=== PATIENT | male | born 1980 | race Caucasian/White ===

== ENCOUNTER 2022-01-07 16:19 | Inpatient (IN) | payer OTHER, SELFPAY ==
--- NOTE | ~2022-01-07 | XR_ITS ---
EXAMINATION: XR abdomen/kub 1V DATE: 01/08/2022 09:21 INDICATION: Small bowel obstruction TECHNIQUE: A supine view of the abdomen on 2 radiographs was obtained. COMPARISON: 01/07/2022 FINDINGS: Nasogastric tube tip in proximal side port in the body of the stomach. Moderate amount of stool scatt ered throughout the colon. Significant decrease in now small amount of gas within a few loops of nond ilated bowel in the right abdomen. The previous a dilated gas-filled loops of bowel in the central an d left abdomen are normal. Present study consistent with improving small bowel obstruction. Excreted contrast in the bladder from prior CT. Persistent opacities at the left lung base with appearance on prior CT favoring atelectasis over pneumonia. IMPRESSION: 1. Improving small bowel obstruction versus ileus. Reviewed, dictated and finalized at location A.
--- NOTE | ~2022-01-07 | CT_ITS ---
EXAMINATION: CT abdomen pelvis w con DATE: 01/07/2022 20:12 INDICATION: epigastric pain X 4 days, bloating, ETOH abuse TECHNIQUE: Computed tomography (CT) of the abdomen and pelvis was performed with 100 mL Omnipaque-350 intravenous contrast. Automated exposure control and iterative reconstruction technique were employe d. The dose-length product was 779.69 mGy-cm. COMPARISON: None. FINDINGS: Lower thorax: Coronary calcification. Subsegmental medial right middle lobe and lingular atelectasis. Bibasilar linear scar. Liver: Innumerable subcentimeter hypodensities, too small to characterize but likely represent cysts. Biliary/Gallbladder: Gallbladder is normal. No bile duct dilation. Pancreas: No mass or duct dilation. Spleen: Normal. Adrenals:No mass. Kidneys: Subcentimeter right lower pole hypodensity, too small to characterize but likely represents a cyst or AML. No suspicious mass, stone, or hydronephrosis. GI tract: Multiple loops of dilated small bowel mid abdomen. Portions of the proximal jejunum and dis julito ileum are normal in caliber. No discrete transition point. Minimal interloop fluid. No large parker l dilation. Normal appendix. Mesentery/Peritoneum: No ascites, mass, or free air. Retroperitoneum: No mass. Pelvis: Distended urinary bladder, prosthetic calcification, pelvic organs are otherwise within leatha l limits. Soft Tissues: Uncomplicated small fat-containing umbilical and right inguinal hernias. Bones: No acute osseous finding. IMPRESSION: Long segment small bowel obstruction, involving portions of the distal jejunum and proximal ileum, wi thout identification of focal transition point. Reviewed, dictated and finalized at location K. IMPRESSION: Long segment small bowel obstruction, involving portions of the distal jejunum and proximal ileum, without identification of focal transition point.
--- NOTE | ~2022-01-07 | XR_ITS ---
EXAM: XR abdomen NG/feed tube insert DATE: 01/07/2022 21:52 HISTORY: ng tube placement . COMPARISON: CT abdomen and pelvis, same date. FINDINGS: NG tube, tip over the stomach, side port at the GE junction. Bibasilar scar and atelectasi s. Multiple loops of dilated small bowel. No organomegaly. No abnormal abdominal calcification. Regio nal bones and soft tissues normal for age. IMPRESSION: Shallow positioned NG tube, consider 4 cm advancement. Reviewed, dictated and finalized at location K.
--- NOTE | ~2022-01-07 | XR_ITS ---
EXAMINATION: XR sm bowel follow through DATE: 01/08/2022 13:30 INDICATION: Small bowel obstruction. TECHNIQUE: Oral contrast was administered, and a time course of radiographs of the abdomen was obtain ed. Fluoroscopy of the small bowel was not performed. Fluoroscopy exposure time was 0 minutes. The to julito number of images was 6. COMPARISON: CT abdomen and pelvis 01/07/2022 FINDINGS: There are multiple dilated loops of jejunum. The ileum is normal in caliber. Transit time from the st omach to proximal colon was approximately 1.5 hours. IMPRESSION: 1. Dilated jejunum without focal transition point, consistent with adynamic ileus. Reviewed, dictated and finalized at location A. IMPRESSION: 1. Dilated jejunum without focal transition point, consistent with adynamic ile us.
[2022-01-07 16:43] VITALS: BP 121/87; PULSE 84; RESP 18; TEMP 36.4; O2SAT 100
[2022-01-07 17:11] LABS: Basophils Percent Auto 0.6 % (0.2-1.2); Eosinophils Absolute Auto 0.1 K/mm3 (0-0.3); Eosinophils Percent Auto 1.8 % (0-4.4); Hematocrit 47.1 % (42.0-52.0); Hemoglobin 15.7 g/dL (14.0-18.0); Immature Granulocyte Absolute 0.03 K/mm3 (0.00-0.031); Immature Granulocyte Percent A 0.5 % (0-0.5); Lymphocytes Absolute Auto 1.55 K/mm3 (0.9-3.2); Lymphocytes Percent Auto 24.8 % (18.3-44.2); Mean Corpuscular HGB Conc 33.3 g/dl (32-36); Mean Corpuscular Hemoglobin 31.7 pg (26-34); Mean Corpuscular Volume 95.2 fl (80-100); Monocytes Absolute Auto 0.4 K/mm3 (0.1-0.6); Monocytes Percent Auto 6.9 % (2.6-8.5); Neutrophils Absolute Auto 4.1 K/mm3 (1.3-6.7); Neutrophils Percent Auto 65.4 % (45.5-73.1); Platelet Count Result 246 k/mm3 (150-375); Red Blood Count 4.95 M/mm3 (4.6-6.20); Red Cell Distribution Width 13.5 % (11.5-14.5); White Blood Count 6.3 K/mm3 (4.5-10.0)
[2022-01-07 17:15] LABS: Appearance Urine Clear (Clear); Bilirubin Urine Negative (Negative); Blood Urine Negative (Negative); Color Urine Yellow (Yellow); Glucose Urine UA Negative (Negative); Ketones Urine Negative (Negative); Leukocyte Esterase Ur Negative LEU/UL (Negative); Nitrate Urine Negative (Negative); Protein Urine Negative (Negative); Urobilinogen Urine 0.2 mg/dL (<2.0)
[2022-01-07 17:16] LABS: Alanine Aminotransferase 17 U/L (6-50); Albumin Level 4.6 g/dL (3.5-5.1); Alkaline Phosphatase 37 U/L (38-126); Anion Gap 11 mmol/L (8-16); Aspartate Amino Transferase 22 U/L (17-59); Bilirubin,Total 0.4 mg/dL (0.2-1.3); Blood Urea Nitrogen 9 mg/dL (9-20); Calcium 9.5 mg/dL (8.4-10.2); Carbon Dioxide 27 mmol/L (22-30); Chloride 100 mmol/L (98-107); Estimated CRCL calculation 102 ml/min; Estimated Glomerular Filt Rate > 60; Glucose 98 mg/dL (65-110); Lipase 37 U/L (23-300); Potassium 4.3 mmol/L (3.4-5.0); Sodium 138 mmol/L (137-145)
[2022-01-07 17:27] LABS: RBC Urine 0-2 /hpf (0-2); WBC Urine 0-3 /hpf
[2022-01-07 17:44] LABS: Add Urine Microscopic? YES
--- NOTE | 2022-01-07 19:21 | ED.ABDPAIN ---
HPI - Abdominal Pain General Chief Complaint: Abdominal Pain Stated Complaint: i think my appendix is going to burst Time Seen by Provider: 01/07/22 18:46 Source: patient Mode of arrival: ambulatory Limitations: no limitations History of Present Illness HPI narrative: Patient is a 41-year-old male, with history of ETOH abuse, who presents to the ED with report of upper abdominal pain. Patient reports having persistent pain for the last 4 days. Intermittent sharp and stabbing pains. Pain worse when he is laying flat patient or on his side. He also reports having bloating and distention of his abdomen over the last 4 days. Denies any nausea, vomiting, diarrhea, constipation, rectal bleeding, fevers. Last BM yesterday and small. Denies history of known liver disease. Patient reports a history of ETOH abuse. He was previously sober for 19 months, but over the last 4 months he has been drinking daily again, up to 12 shots of whiskey a day. He has not drank anything in the last 4 days. He denies having significant withdrawal symptoms when he does stop drinking. Denies history of withdrawal seizures. Related Data Allergies Allergy/AdvReac Type Severity Reaction Status Date / Time Penicillins Allergy Unknown Unknown Verified 01/07/22 18:51 Review of Systems Review of Systems: CONSTITUTIONAL: Denies fever, chills, or sweats. CARDIOVASCULAR: Denies chest pain. RESPIRATORY: Denies dyspnea. GASTROINTESTINAL: Reports upper abdominal pain. Denies constipation, rectal bleeding, nausea, vomiting, or diarrhea. GENITOURINARY: Denies dysuria or hematuria. MUSCULOSKELETAL: Denies back pain. All systems reviewed & are unremarkable except as noted in HPI and below PMFSH Past Medical History Medical History Generalized anxiety disorder with panic attacks Surgical History Surgical History (Updated 01/07/22 @ 19:34 by Amanda Cuba PA-C) History of tonsillectomy and adenoidectomy Social History Social History (Updated 01/07/22 @ 19:35 by Amanda Cuba PA-C) Smoking status: Current every day smoker Tobacco type: cigarettes Alcohol intake: current Exam Narrative: GENERAL: Well appearing, well-nourished, non-toxic, in no acute distress. HEAD: Normocephalic, atraumatic. NECK: Supple. No adenopathy, no masses. RESPIRATORY: Airway patent, respirations nonlabored. Clear to auscultation bilaterally, no rales, rhonchi, wheezing. CARDIOVASCULAR: Regular rate and rhythm without murmurs, rubs, or gallops. Peripheral pulses 2+ and equal bilaterally. ABDOMINAL: Soft, but appears bloated and mildly distended. Tenderness to palpation in the epigastric and supraumbilical region. Nondistended, no hepatosplenomegaly. Normoactive BS in lower quadrants. MUSCULOSKELETAL: Moves all extremities. Strength/ROM intact without gross deformities or TTP. No edema. SKIN: Warm, dry, normal color. No rashes. Yellow discoloration of L 1st and 2nd nails, likely due to smoking. NEURO: A&O X3. Speech clear. Cranial nerves II-XII grossly intact. Steady gait. No ataxic movements. PSYCHIATRIC: Appropriate mood and affect. Normal interaction. Course Consultations Consultation #1: Discussed case with Dr. Ryan, accepted patient for admission. Date: 01/07/22 Consultation #2: Discussed case with Dr. Cooper, general surgery, will see patient in the morning. NG tube. Date: 01/07/22 Vital Signs Vital signs: Vital Signs Temperature 97.6 F 01/07/22 16:43 Pulse Rate 84 01/07/22 16:43 Respiratory Rate 18 01/07/22 16:43 Blood Pressure 121/87 01/07/22 16:43 Pulse Oximetry 100 01/07/22 16:43 Oxygen Delivery Room Air 01/07/22 16:43 Temperature 97.6 F 01/07/22 16:43 Pulse Rate 84 01/07/22 16:43 Respiratory Rate 18 01/07/22 16:43 Blood Pressure 121/87 01/07/22 16:43 Pulse Oximetry 100 01/07/22 16:43 Oxygen Delivery Room Air 01/07/22 16:43 MDM
[2022-01-07] MEDS: MORPHINE SULFATE (*CRX) 2 MG/ML INJ IV PUSH (19:41)
[2022-01-07] MEDS: ONDANSETRON INJ 4 MG/2 ML VIAL IV PUSH (19:41)
[2022-01-07] MEDS: SODIUM CHLORIDE 0.9% IV 1,000 ML 999 ML IV CONT (19:41)
[2022-01-07] MEDS: MORPHINE SULFATE (*CRX) 4 MG/ML INJ IV PUSH (21:27)
--- NOTE | 2022-01-07 21:33 | PM.IMHP ---
H&P: HPI History of Present Illness Date/Time: 01/07/22 21:33 Chief Complaint: abdominal pain Narrative: This is a 41-year-old male with past medical history significant for alcohol abuse, generalized anxiety disorder, tobacco dependence patient smokes 2 packs of cigarettes daily. patient presents to the emergency room due to sudden onset abdominal pain S states that he has been in his usual state of health up until 2 days ago he did various things at home to try to get it to go away initially thought that he was constipated and he has been eating in a high-fiber diet however pain continued to worsen has not been able to pass gas and had change in his bowel movements had 1 small bowel movement, patient denies any blood in the stools, no vomiting, no nausea, no fevers, no rigors, no chills, no cough, no sputum production. Preliminary workup was significant for CT of abdomen and pelvis was reported as; IMPRESSION: Long segment small bowel obstruction, involving portions of the distal jejunum and proximal ileum, without identification of focal transition point. Review of Systems Review of Systems: abdominal pain for 4 days, constipation Constitutional: Constitutional: Denies chills, Denies fever(s), Denies malaise, Denies night sweats and Denies weakness Eyes: Eyes: Denies change in vision ENT: Denies dysphagia, Denies vertigo, Denies dizziness and Denies odynophagia Cardiovascular: Cardiovascular: Denies chest pain, Denies syncope, Denies irregular heart rhythm, Denies lightheadedness and Denies palpitations Respiratory: Respiratory: Denies chest congestion, Denies cough, Denies excessive phlegm production, Denies pain on inspiration, Denies dyspnea and Denies dyspnea on exertion Gastrointestinal: Gastrointestinal: Reports abdominal pain, Denies melena, Reports bloating, Denies hematochezia, Denies coffee ground emesis, Denies dyspepsia, Denies heartburn, Denies nausea, Denies vomiting and Denies hematemesis Genitourinary: Genitourinary: Denies dysuria Musculoskeletal: Musculoskeletal: Denies back pain, Denies arthralgias, Denies joint swelling and Denies muscle weakness Integumentary/Breasts: Skin/Breast: Denies rash Neurologic: Denies vertigo, Denies dizziness, Denies focal weakness and Denies Sensory deficit (Neuro) Psychiatric: Psychiatric: Reports no additional psychiatric complaints and Reports as per HPI Endocrine: Endocrine: Denies cold intolerance, Denies flushing, Denies heat intolerance, Denies polyphagia, Denies polydipsia and Denies palpitations Hematologic/Lymphatic: Hematologic/Lymphatic: Reports no additional hematologic/lymphatic complaints and Reports as per HPI Allergic/Immunologic: Allergic/Immunologic: Reports no additional allergic/immunologic complaints and Reports as per HPI PMFSH Past Medical History Medical History Generalized anxiety disorder with panic attacks Surgical History Surgical History (Updated 01/07/22 @ 19:34 by Amanda Cuba PA-C) History of tonsillectomy and adenoidectomy Family History Family History (Updated 01/07/22 @ 23:40 by Reynold Jean RN) Sibling Anxiety Depression Father Anxiety Depression Mother Anxiety Depression Diverticulitis Social History Social History (Updated 01/07/22 @ 19:35 by Amanda Cuba PA-C) Smoking status: Current every day smoker Tobacco type: cigarettes Alcohol intake: former Drinks per week: 50 Substance use: current Substance use type: marijuana Last use: 01/02/2022 Spiritual care concerns: No Meds Home Medications and Allergies Home Medications Medication Instructions Recorded Confirmed Type albuterol sulfate 90 mcg/actuation 90 mcg inhalation QID PRN 01/07/22 01/07/22 History aerosol inhaler Shortness Of Breath clonazepam 1 mg tablet 1 mg PO TID 01/07/22 01/07/22 History nicotine 21 mg/24 hr daily 21 mg de leon
[2022-01-07] MEDS: NICOTINE (*PBKC) 21 MG PATCH 1 PATCH TRANSDERM (21:49)
[2022-01-07] MEDS: LORazepam INJ (*CRX) 2 MG/ML VIAL 0.5 MG IV PUSH (22:43)
[2022-01-07 23:01] VITALS: BP 140/68; PULSE 84; RESP 16; O2SAT 98
[2022-01-07 23:50] VITALS: BMI 26.2
[2022-01-07 23:51] VITALS: BP 130/78; PULSE 62; RESP 20; TEMP 36.2; O2SAT 99
[2022-01-08] MEDS: HYDROmorphone HCL INJ (*CRX) 1 MG/ML SYR 0.5 MG IV PUSH ×5 (00:04→08:21)
--- NOTE | 2022-01-08 00:20 | ADMGEN ---
This patient, Tung Gilbert, was admitted to Medical Room 242-. Patient/family oriented to hospital policies and general routines including ID bracelet, bed and alarms, visiting hours, pain management, procedures, bathroom and other care routines, personal items, smoking policy, room service/diet, and visiting hours. Information on how to activate the Rapid Response Team has been discussed. Patient/Family are encouraged to report perceived risks to care and to ask questions if they do not understand what they are told or what they should do.
[2022-01-08 04:56] VITALS: BP 107/65; PULSE 72; RESP 18; TEMP 36; O2SAT 98
[2022-01-08] MEDS: NICOTINE (*PBKC) 21 MG PATCH 1 PATCH TRANSDERM (08:19)
[2022-01-08] MEDS: THIAMINE HCL 200 MG/2 ML VIAL 100 MG IV PUSH (08:20)
[2022-01-08 08:29] VITALS: RESP 18; O2SAT 98
[2022-01-08] MEDS: SODIUM CHLORIDE 0.9% IV 1,000 ML 100 ML IV CONT ×2 (08:53→20:22)
--- NOTE | 2022-01-08 10:52 | PM.CNGS ---
Assessment and Plan Assessment and plan (1) Small bowel obstruction: Code(s): K56.609 - Unspecified intestinal obstruction, unspecified as to partial versus complete obstruction Status: Acute Assessment and Plan: CT scan reviewed and discussed with the patient in detail. This suggests long segment small bowel obstruction with no transition point. He has no previous abdominal surgeries and etiology is unclear at this time. NG tube was placed and he was made NPO. Seems to be clinically improving and his KUB this morning showed improvement. KUB also shows a fair amount of stool in his colon. Still not having any bowel function but his abdominal exam is benign with good bowel sounds. The patient is very agitated about the discomfort of the NG tube and is wanting it to be removed. Will get a Gastrografin small bowel follow through now to further evaluate the obstruction. This will be both diagnostic and therapeutic. If there is no obstruction, then we can remove the NG tube and start clear liquids. (2) Alcohol dependence: Code(s): F10.20 - Alcohol dependence, uncomplicated Status: Acute (3) Tobacco dependence: Code(s): F17.200 - Nicotine dependence, unspecified, uncomplicated Status: Acute Plan I have discussed the patient's case and plan of care with Dr. Cooper. Thank you for allowing us to see the patient in consultation and we will continue to follow along with you. History of Present Illness Consult details Consult date: 01/08/22 Reason for consult: other (Small bowel obstruction) Requesting physician: Amanda Cuba PA-C Narrative: This is a 41-year-old man with a history of ETOH abuse, who presented to the ER last night with complaints of abdominal pain. He states that 5 days ago, he had 5 shots of whiskey and ate a bratwurst. Shortly after eating, he had an onset of diffuse abdominal pain. His pain improved over the next four hours, and he decided to eat another bratwurst. His abdominal pain returned. His pain would come and go in waves. It was cramping in nature but severe. He denies nausea, vomiting, or diarrhea. He had associated bloating. He felt constipated and thought his symptoms would improve with BM. Therefore, he continued to eat over the next few days to try and help facility his bowel moving. He ate cashews, beef jerky, large amount of beef stew, and multiple other meals. He had one small bowel movement 3 days ago, but his pain continued. He has not been passing gas the last few days. He did not take any laxatives or over the counter medication. Due to his persistent abdominal pain, he presented to the ER for evaluation. CT scan of the abdomen and pelvis showed a long segment small bowel obstruction involving portions of the distal jejunum and proximal ileum without focal transition point. Labs were unremarkable. He was admitted to the Hospitalist. Our service was consulted for small bowel obstruction. He is now seen on the medical floor. No history of any abdominal surgeries and no history of a bowel obstruction in the past. No personal or family history of IBD. The patient is frustrated on my exam due to his NG tube. His only complaint is the pain in his head from the NG tube. He reports his abdominal pain has improved and he states he is still sore to palpation but no pain. He is requesting pain medication for his head and ear pain. He denies nausea. His bloating has improved. He is not passing gas and still no BM. There has been 250 cc out from the NG since it was placed last night. Review of Systems Review of Systems: All systems reviewed & are unremarkable except as noted in HPI and below Constitutional: Constitutional: Reports as per HPI, Reports no additional constitutional complaints, Denies chills, Denies fatigue, Denies fever(s) and Reports headache(s) Eyes: Eyes: Reports no additional eye complaints ENT: Reports system reviewed and no additional complaints, except
[2022-01-08] MEDS: MORPHINE SULFATE (*CRX) 2 MG/ML INJ IV PUSH (10:56)
--- NOTE | 2022-01-08 11:15 | PM.IMPN ---
Progress Note: A&P Assessment and Plan (1) Small bowel obstruction: Code(s): K56.609 - Unspecified intestinal obstruction, unspecified as to partial versus complete obstruction Status: Acute Assessment and Plan: CT of the abd/pel SBO involving portions of the distal jejunem and proximal ileum without focal transition point Repeat TORITO shows improved small bowel follow through NG tube placed to LIMS IV fluids for hydration Trend output General surgery consult thank you Dilaudid and Tylenol for pain control Added Morphine 2mg IV one time to see if this helps with the pain Serial abd xrays Small bowel follow through NPO for now (2) Generalized anxiety disorder with panic attacks: Code(s): F41.1 - Generalized anxiety disorder; F41.0 - Panic disorder [episodic paroxysmal anxiety] Status: Acute Assessment and Plan: Hold home PO medications Valium IV PRN Trend mood Adjust as indicated (3) Alcohol dependence: Code(s): F10.20 - Alcohol dependence, uncomplicated Status: Acute Assessment and Plan: CIWA as needed Neuro checks Folic acid and thiamine Trend CIWA score Librium on board Valium on board (4) Tobacco dependence: Code(s): F17.200 - Nicotine dependence, unspecified, uncomplicated Status: Acute Assessment and Plan: nicotine patch and gum as needed Cessation education given for 8 minutes Time Spent With Patient Time with patient: Greater than 35 minutes Subjective Date/time seen: 01/08/22 06:30 Interval history: 01/08/22 Patient is plenty of pain. Patient stated that his pain from his abdomen has subsided however he is having some major ear, throat, nasal pain from the tube. Did explain to the patient that we will try 2 mg of morphine x1 it is. He also thinks that if he had some laxatives it would really help. However he denies any gas. NG tube is hooked up to suction did looks to be light brown. KUB was performed and showed a mild improvement. Surgeries ordered a small-bowel follow-through. Patient is a marijuana user which could be the reason why he is having hard time getting his pain controlled. Will continue to adjust pain medicines until he is comfortable. 01/07/22? 21:33 ?This is a 41-year-old male with past medical history significant for alcohol abuse, generalized anxiety disorder, tobacco dependence patient smokes 2 packs of cigarettes daily. patient presents to the emergency room due to sudden onset abdominal pain S states that he has been in his usual state of health up until 2 days ago he did various things at home to try to get it to go away initially thought that he was constipated and he has been eating in a high-fiber diet however pain continued to worsen has not been able to pass gas and had change in his bowel movements had 1 small bowel movement,? patient denies any blood in the stools,? no vomiting, no nausea, no fevers, no rigors, no chills, no cough, no sputum production.? Preliminary workup was significant for CT of abdomen and pelvis? was reported as; IMPRESSION: Long segment small bowel obstruction, involving portions of the distal jejunum and proximal ileum, without identification of focal transition point. Review of Systems Review of Systems: All systems reviewed & are unremarkable except as noted in HPI and below Exam Const: General: cooperative, no acute distress, well developed, alert, awake, acute distress, tired appearing and uncomfortable Nutritional Appearance: well nourished Orientation/consciousness: patient oriented x3 Limitations: no limitations HENMT: Head: normal to inspection Ears: hearing grossly normal bilaterally General nose exam: Normal external nose present Mouth: Yes Normal oral and palatal mucosa present, Yes lip normal and Yes tongue normal Teeth and gingiva: abnormal tooth and associated gingiva and poor dentiti
--- NOTE | 2022-01-08 11:45 | PC.NURSE ---
To radiology via wheelchair.
[2022-01-08] MEDS: diazePAM INJ (*CRX) 10 MG/2 ML SYRINGE 5 MG IV PUSH ×2 (12:22→20:21)
[2022-01-08] MEDS: HYDROmorphone HCL INJ (*CRX) 1 MG/ML SYR IV PUSH ×2 (13:34→19:32)
[2022-01-08 14:00] VITALS: BP 123/65; PULSE 91; RESP 18; TEMP 36.7; O2SAT 97
[2022-01-08 19:34] VITALS: BP 142/90; PULSE 92; RESP 17; TEMP 36.6; O2SAT 100
[2022-01-08] MEDS: NICOTINE (*PBKC) 4 MG GUM PO (20:32)
[2022-01-09 04:57] VITALS: BP 131/79; PULSE 75; RESP 16; TEMP 36.4; O2SAT 97
[2022-01-09] MEDS: HYDROmorphone HCL INJ (*CRX) 1 MG/ML SYR IV PUSH (05:06)
[2022-01-09] MEDS: diazePAM INJ (*CRX) 10 MG/2 ML SYRINGE 5 MG IV PUSH (05:07)
[2022-01-09] MEDS: SODIUM CHLORIDE 0.9% IV 1,000 ML 100 ML IV CONT (05:13)
[2022-01-09 05:43] LABS: Basophils Percent Auto 0.6 % (0.2-1.2); Eosinophils Absolute Auto 0.1 K/mm3 (0-0.3); Eosinophils Percent Auto 2.6 % (0-4.4); Hematocrit 40.6 % (42.0-52.0); Hemoglobin 13.8 g/dL (14.0-18.0); Immature Granulocyte Absolute 0.02 K/mm3 (0.00-0.031); Immature Granulocyte Percent A 0.4 % (0-0.5); Lymphocytes Absolute Auto 1.33 K/mm3 (0.9-3.2); Lymphocytes Percent Auto 28.3 % (18.3-44.2); Mean Corpuscular Hemoglobin 32.3 pg (26-34); Mean Corpuscular Volume 95.1 fl (80-100); Mean Platelet Volume 8.9 fl (7.4-10.4); Monocytes Absolute Auto 0.6 K/mm3 (0.1-0.6); Monocytes Percent Auto 11.9 % (2.6-8.5); Neutrophils Absolute Auto 2.6 K/mm3 (1.3-6.7); Neutrophils Percent Auto 56.2 % (45.5-73.1); Platelet Count Result 202 k/mm3 (150-375); Red Blood Count 4.27 M/mm3 (4.6-6.20); Red Cell Distribution Width 13.2 % (11.5-14.5); White Blood Count 4.7 K/mm3 (4.5-10.0)
[2022-01-09 06:05] LABS: Alanine Aminotransferase 17 U/L (6-50); Albumin Level 3.5 g/dL (3.5-5.1); Alkaline Phosphatase 28 U/L (38-126); Anion Gap 6 mmol/L (8-16); Aspartate Amino Transferase 25 U/L (17-59); Bilirubin,Total 0.4 mg/dL (0.2-1.3); Blood Urea Nitrogen 7 mg/dL (9-20); Calcium 8.5 mg/dL (8.4-10.2); Carbon Dioxide 26 mmol/L (22-30); Chloride 105 mmol/L (98-107); Estimated CRCL calculation 114 ml/min; Estimated Glomerular Filt Rate > 60; Glucose 92 mg/dL (65-110); Potassium 3.8 mmol/L (3.4-5.0); Sodium 137 mmol/L (137-145)
[2022-01-09 07:50] VITALS: RESP 18; O2SAT 98
[2022-01-09] MEDS: THIAMINE HCL 200 MG/2 ML VIAL 100 MG IV PUSH (08:46)
[2022-01-09] MEDS: clonazePAM (*CRX) 0.5 MG TABLET 1 MG PO (08:46)
[2022-01-09] MEDS: FOLIC ACID 1 MG TABLET PO (08:46)
[2022-01-09] MEDS: NICOTINE (*PBKC) 4 MG GUM PO (08:47)
[2022-01-09] MEDS: NICOTINE (*PBKC) 21 MG PATCH 1 PATCH TRANSDERM (08:47)
--- NOTE | 2022-01-09 08:54 | PM.PNGS ---
Progress Note: A&P Assessment and Plan (1) Small bowel obstruction: Code(s): K56.609 - Unspecified intestinal obstruction, unspecified as to partial versus complete obstruction Status: Acute Assessment and Plan: Small-bowel follow-through showed some dilated jejunum with transit time to the colon in 1.5 hours. His diet has been advanced and he is tolerating a regular diet. Bowels are moving. Okay to discharge from our standpoint. No follow-up needed. Plan I have discussed the patient's case and plan of care with Dr. Cooper. Subjective Subjective Date/Time Seen: 01/09/22 08:54 Patient reports: feels better, tolerating a regular diet, flatus and bowel movement Interval history: Patient seen and examined. He reports feeling much better today. Denies any abdominal pain, nausea, or vomiting. Bloating continues to improve. He has had at least 6 bowel movements overnight. No other complaints at this time. Exam Const: General: no acute distress Orientation/consciousness: patient oriented x3 GI: Inspection: non-distended GI Palp: Yes Soft to palpation, No Tenderness to palpation present (GI), No Guarding due to palpation present (GI) and No Rebound tenderness present Auscultation: normal bowel sounds Psych: Mental Status: mental status grossly normal Insight: Good insight present (Psych) Objective Data Vital Signs Vital Signs: Vital Signs - 24 hr 01/08/22 14:00 01/08/22 19:34 01/08/22 20:00 Temperature 98.0 F 97.8 F Pulse Rate 91 92 Respiratory Rate 18 17 Blood Pressure 123/65 142/90 H Pulse Oximetry 97 100 Oxygen Delivery Room Air 01/09/22 04:57 01/09/22 07:50 Temperature 97.6 F Pulse Rate 75 Respiratory Rate 16 18 Blood Pressure 131/79 Pulse Oximetry 97 98 Oxygen Delivery Room Air Intake/Output Intake/Output: Intake & Output 01/06/22 01/07/22 01/08/22 01/09/22 23:59 23:59 23:59 23:59 Intake Total 1100 1780 1597 Output Total 2550 500 Balance 1100 -770 1097 Meds/Results Medications: Active Medications Generic Name Dose Route Start Last Admin Trade Name Freq PRN Reason Stop Dose Admin Acetaminophen 650 mg 01/09/22 07:56 Acetaminophen 325 Mg Tablet PO Q4H PRN Mild Pain Albuterol 2 puff 01/08/22 06:27 Albuterol Sulfate (*Sp) Aerosol 1 Puff INHALATION QID PRN Shortness Of Breath Chlordiazepoxide HCl 25 mg 01/08/22 06:31 Chlordiazepoxide (*Crx) 25 Mg Capsule PO Q6H PRN Withdrawal Clonazepam 1 mg 01/09/22 07:55 01/09/22 08:46 Clonazepam (*Crx) 0.5 Mg Tablet PO 1 mg TID PRN Administration Anxiety Folic Acid 1 mg 01/08/22 09:00 01/09/22 08:46 Folic Acid 1 Mg Tablet PO 1 mg DAILY DYLLAN Administration Hydromorphone HCl 1 mg 01/08/22 11:46 01/09/22 05:06 Hydromorphone Hcl Inj (*Crx) 1 Mg/Ml Syr IV PUSH 1 mg Q3H PRN Administration Pain Rated 7-10 Sodium Chloride 1,000 mls @ 100 mls/hr 01/08/22 08:35 01/09/22 05:13 Normal Saline Iv IV CONT 100 mls/hr .Q10H DYLLAN Administration Nicotine 1 patch 01/08/22 06:28 01/09/22 08:47 Nicotine (*Pbkc) 21 Mg Patch TRANSDERM 1 patch QAM PRN Administration tobacco cravings Nicotine Polacrilex 4 mg 01/08/22 06:28 01/09/22 08:47 Nicotine (*Pbkc) 4 Mg Gum PO 4 mg PRN PRN Administration Nicotine Cravings Thiamine HCl 100 mg 01/08/22 09:00 01/09/22 08:46 Thiamine Hcl 200 Mg/2 Ml Vial IV PUSH 100 mg DAILY DYLLAN Administration Radiology Results: ITS Impressions Abdomen/Pelvis CT 01/07/22 20:52 IMPRESSION: Long segment small bowel obstruction, involving portions of the distal jejunum and proximal ileum, without identification of focal transition point. Abdomen X-Ray 01/08/22 09:25 IMPRESSION: 1. Improving small bowel obstruction versus ileus. Small Bowel X-Ray 01/08/22 13:36 IMPRESSION: 1. Dilated jejunum without focal transition point, consistent with ad
--- NOTE | 2022-01-09 09:50 | PM.DS ---
DS: Admitting Diagnosis Discharge Date 01/09/2022 Admitting Diagnosis Ileus DS: Discharge Diagnosis Discharge Diagnosis (1) Small bowel obstruction: Code(s): K56.609 - Unspecified intestinal obstruction, unspecified as to partial versus complete obstruction Status: Acute Assessment and Plan: patient presented with [address] days of abdominal pain CT of the abdomen/ pelvis on presentation showed long segment small bowel obstruction involving portions of distal jejunum and proximal ileum without identification of focal transition point patient was seen in consultation by General surgery NG tube placed on admission with overall improvement small-bowel follow-through completed on 01/08 showed findings consistent with adynamic ileus with contrast transit from stomach to proximal colon and 1.5 hours diet was able to be advanced and patient eventually able to tolerate a regular diet. pain resolved. (2) Generalized anxiety disorder with panic attacks: Code(s): F41.1 - Generalized anxiety disorder; F41.0 - Panic disorder [episodic paroxysmal anxiety] Status: Acute Assessment and Plan: Patient maintained on clonazepam 1 mg t.i.d. states he is running out of this medication and cannot get it refilled due to cost to see his provider. he has been referred to the on-call PCP whom he can follow up with and may consider referral to Psychiatry as an outpatient patient open to alternative therapies (3) Alcohol dependence: Code(s): F10.20 - Alcohol dependence, uncomplicated Status: Acute Assessment and Plan: patient with history of alcohol abuse. Reports being sober for 9 months, recently drank again after from his but reports that he has not had any alcohol in several weeks. CIWA protocol initiated during admission with scores ranging from 0-4 no evidence of alcohol withdrawal continue thiamine and folic acid educated patient for 5 minutes regarding importance of continued abstinence from alcohol use. (4) Tobacco dependence: Code(s): F17.200 - Nicotine dependence, unspecified, uncomplicated Status: Acute Assessment and Plan: patient smokes 1 pack per day had previously been using nicotine patches but admitted to smoking while using nicotine patches patient informed he should under no circumstances smoke while wearing nicotine patch discussed smoking cessation with the patient for 5 minutes. Patient states he is not prepared to embark on smoking cessation endeavor until he gets his anxiety medications sorted out. DS: Summary Hospital Course Hospital Course: date of admission: 01/07/2022 date of discharge: 01/09/2022 Tung Gilbert is a 41-year-old male with a history of anxiety disorder with panic attacks, tobacco abuse, alcohol abuse who presented to the emergency department on 01/07/2022 with complaints of abdominal pain ongoing for 4 days. On presentation to the ED, his vital signs were stable, he was afebrile, CBC and BMP unremarkable, CT of the abdomen/pelvis showed long segment small bowel obstruction. NG tube placed in the ED and patient was admitted to the hospitalist service for further evaluation and management. Please see above for further details. Patient had symptomatic improvement following NG decompression. NG tube was removed and bowel function return. Patient able to tolerate his diet. Patient was feeling back to his usual state of health and was eager for discharge home. Given overall improvement, he was determined to no longer require inpatient care was discharged in hemodynamically stable condition 01/09/2022. Patient educated regarding continued alcohol cessation as well as smoking cessation. He was referred to the on-call primary care provider to establish care. discussed with the patient worrisome signs and symptoms for which to return and he was educated on his medications. Time Spent with
== END 2022-01-09 10:40 | disposition home or self-care (01) | DRG 247 ==
LOC: ANHED 19:18 → ANH2MED 22:27
PROVIDERS: Nurse Practitioner; Admitting Provider Internal Medicine; Emergency Provider Emergency Medicine; Visit Provider Family Medicine
DX: K56.609 Unspecified intestinal obstruction, unspecified as to partial versus complete obstruction (principal); F10.20 Alcohol dependence, uncomplicated; F41.0 Panic disorder [episodic paroxysmal anxiety]; F41.1 Generalized anxiety disorder; F17.210 Nicotine dependence, cigarettes, uncomplicated
CPT/HCPCS: 36415; 74018; 74177; 74250; 80053; 81001; 83690; 83735; 85025; 96374; 96375; 96376; 99285; A9270; G0378; G0379; J0131; J1170; J2060; J2270; J2405; J3360; J3411; J7030; Q9967

== ENCOUNTER 2022-04-30 13:38 | Emergency (ER) | payer OTHER, SELFPAY ==
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
[2022-04-30 13:48] VITALS: BP 109/63; PULSE 82; RESP 16; TEMP 36.2; O2SAT 99
== END 2022-04-30 15:29 | disposition home or self-care (01) ==
PROVIDERS: Emergency Provider Nurse Practitioner Family
DX: S16.1XXA Strain of muscle, fascia and tendon at neck level, initial encounter (principal); V48.6XXA Car passenger injured in noncollision transport accident in traffic accident, initial encounter; M54.6 Pain in thoracic spine; M54.50 Low back pain, unspecified; F41.1 Generalized anxiety disorder; F41.0 Panic disorder [episodic paroxysmal anxiety]; F17.210 Nicotine dependence, cigarettes, uncomplicated
CPT/HCPCS: 72040; 72072; 72100; 99214; G0463